=== PATIENT | female | born 1945 | race Caucasian/White ===

== ENCOUNTER → 2021-01-08 | Outpatient (CLI) | payer MEDICARE, OTHER ==
[~2021-01-08] MED LIST: ALBUTEROL2.5 MG/3 M INH; AMITIZA24 MCG PO; ATORVASTATIN CA40 MG PO; BETAPACE80 MG PO; COZAAR25 MG PO; NORCO 5-325 TA1 EACH PO; PLAVIX 75 MG TA75 MG PO; TYLENOL 8 HOUR650 MG PO; XARELTO15 MG PO
== END ==
LOC: KOH-I 14:54
DX: M54.6 Pain in thoracic spine (principal)
CPT/HCPCS: 72070; 72100